=== PATIENT | female | born 1990 | race Caucasian/White ===

== ENCOUNTER → 2018-01-07 | Outpatient (CLI) | payer OTHER ==
[~2018-01-07] MED LIST: CHOL10005 PO; CIP500 PO; DIC10 PO; ESOM20CA31 PO; GLU500 PO; HYOS0.152 PO; KET10 PO; METR70GE14 VG; NORG1TAB76 PO; PREN-127 PO
== END ==
LOC: LAB 09:21
PROVIDERS: ATTEND Obstetrics & Gynecology
DX: E22.1 Hyperprolactinemia (principal)
CPT/HCPCS: 36415; 84146

== ENCOUNTER → 2018-01-12 | Outpatient (CLI) | payer OTHER ==
[~2018-01-12] MED LIST changes: +GADOBENATE 529MG/1ML 15ML VIAL IVP ONE; +NS 0.9% 25 ML BAG 50 ML ONE
--- NOTE | 2018-01-12 11:24 | RADIOLOGY IMAGING REPORT ---
FACILITY: [facility] - [place] PATIENT NAME: Tariq Gil : 1990 MR: [id number] V: [id number] EXAM DATE: ORDERING PHYSICIAN: AMIRA MORAN TECHNOLOGIST: Location: [facility] Patient: Tariq Gil : 1990 Visit/Account:[id number] Date of Sevice: 01/12/2018 SELLA IAC W W/O CONTRAST Comparisons: Brain MRI with and without contrast dated May 16, 2017 Additional pertinent history: Disorder of the pituitary gland TECHNIQUE: Multiplanar, multisequence brain MRI was performed with and without gadolinium contrast. Dedicated thin section imaging was performed through the pituitary fossa both in the coronal and sagi ttal plane. CONTRAST: 15 ml of MultiHance. FINDINGS: Sagittal midline structures and craniocervical junction: Negative. Midline shift: None. Ventricles: Negative. Brain parenchyma: Diffusion weighted imaging: Negative. Gradient sequence: Negative. T2 weighted FLAIR images: Negative. Dedicated imaging through the pituitary fossa: Pituitary stalk/optic chiasm: Negative Pituitary gland/pituitary fossa: Continued 1 cm region of hypoenhancement with mild increas ed T1 signal on the precontrast images within the midportion and left aspect of the pituitary fossa a gain most consistent with an underlying macroadenoma with previous hemorrhage. This finding is stable from previous exam. Cavernous sinuses: Negative Skull base flow voids: Negative Extra-axial spaces: Negative. Dural venous sinuses and major arterial flow voids: Negative. Intracranial enhancement: Negative.. Mastoid air cells and paranasal sinuses: Negative. Surrounding soft tissues and orbits: Negative. Impression: 1. 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 2. No new findings from previous exam. Report Dictated By: Han Mai MD at 01/12/2018 11:15 AM Report E-Signed By: Han Mai MD at 01/12/2018 11:20 AM WSN:[id number]
== END ==
LOC: MRI 01-08 09:58
PROVIDERS: ATTEND Obstetrics & Gynecology
DX: E23.7 Disorder of pituitary gland, unspecified (principal)
CPT/HCPCS: 70553; A9577

== ENCOUNTER → 2018-05-28 | Outpatient (CLI) | payer OTHER ==
[~2018-05-28] MED LIST changes: +FLU60SYR36 IM; -GADOBENATE 529MG/1ML 15ML VIAL IVP ONE; -NS 0.9% 25 ML BAG 50 ML ONE
== END ==
LOC: LAB 09:54
PROVIDERS: ATTEND Obstetrics & Gynecology
DX: D35.2 Benign neoplasm of pituitary gland (principal)
CPT/HCPCS: 36415; 84146

== ENCOUNTER → 2018-11-27 | Outpatient (CLI) | payer OTHER ==
[2018-11-27 08:42] LABS: PLATELET COUNT, AUTOMATED 328 K/uL (150-450)
== END ==
LOC: LAB 08:06
PROVIDERS: ATTEND Obstetrics & Gynecology Gynecology
DX: Z01.83 Encounter for blood typing (principal); Z13.0 Encounter for screening for diseases of the blood and blood-forming organs and certain disorders involving the immune mechanism; Z11.3 Encounter for screening for infections with a predominantly sexual mode of transmission; Z11.59 Encounter for screening for other viral diseases; Z11.8 Encounter for screening for other infectious and parasitic diseases; Z13.29 Encounter for screening for other suspected endocrine disorder; D35.2 Benign neoplasm of pituitary gland
CPT/HCPCS: 36415; 82533; 83001; 83002; 84146; 84305; 84439; 84443; 84481; 85025; 86592; 86703; 86762; 86787; 86803; 86850; 86900; 86901; 87340

== ENCOUNTER → 2018-12-09 | Outpatient (CLI) | payer OTHER | LOC: LAB 07:43 | PROVIDERS: ATTEND Internal Medicine Endocrinology, Diabetes & Metabolism | DX: R82.998 Other abnormal findings in urine (principal); D35.2 Benign neoplasm of pituitary gland | CPT/HCPCS: 36415; 82533 ==

== ENCOUNTER 2019-03-09 00:18 | Emergency (ER) | payer OTHER ==
--- NOTE | 2019-03-09 00:20 | ER Report ---
History and Physical Time Seen By MD: 00:15 HPI/ROS CHIEF COMPLAINT: Abdominal pain HISTORY OF PRESENT ILLNESS: 28-year-old female presents with severe lower abdominal pain and a sensation of having to push to have a bowel movement. She does have a history of constipation and takes MiraLAX on occasion. Patient denies dysuria. She states she is voiding fine. Patient notes severe nausea but no vomiting. Patient's pain became quite severe 10 out of 10. It doubled her over. She's presents for evaluation. Patient's Last menstrual period was 3 weeks ago. Patient took a home test this morning, which she thought was positive. REVIEW OF SYSTEMS: Respiratory: No cough, no dyspnea. Cardiovascular: No chest pain, no palpitations. Gastrointestinal: As above Musculoskeletal: No back pain. Allergies: Coded Allergies: No Known Drug Allergies (Verified , 03/09/19) Home Meds Active Scripts Tramadol Hcl (TRAMADOL HCL) 50 Mg Tablet, 1 TAB PO Q4-6H PRN for PAIN, #10 MG TAKE ONE TABLET BY MOUTH EVERY FOUR TO SIX HOURS NEEDED Prov:MEERA ARTEAGA DO 03/09/19 Ondansetron 4 Mg Odt (ONDANSETRON 4 MG ODT) 4 Mg Tab.rapdis, 4 MG PO Q6H PRN for NAUSEA/VOMITING, #10 TAB Prov:MEERA ARTEAGA DO 03/09/19 Reported Medications Cholecalciferol (Vitamin D3) (VITAMIN D3) 1,000 Unit Tablet, 1000 UNIT PO, TAB 01/06/18 Vits W-Ca,Fe,Fa(<1MG) ( VITAMINS) 1 Each Tablet, 1 EACH PO DAILY, TAB 01/06/18 Reviewed Nurses Notes: Yes Old Medical Records Reviewed: Yes Smoking Status: Never Smoker Constitutional Vital Sign - Last 24 Hours 03/09/19 03/09/19 03/09/19 03/09/19 00:18 00:20 00:22 00:30 Temp 97.7 Pulse ??? 77 Resp 18 B/P (MAP) 106/56 (73) 105/56 113/63 (80) Pulse Ox 93 O2 Delivery Room Air 03/09/19 03/09/19 03/09/19 03/09/19 00:33 00:48 01:00 01:03 Pulse ? 85 B/P (MAP) ???/??? (1665) Pulse Ox 94 03/09/19 03/09/19 03/09/19 03/09/19 01:18 01:29 01:48 01:53 Pulse 84 67 66 B/P (MAP) 116/58 (77) Pulse Ox 94 94 94 03/09/19 03/09/19 03/09/19 03/09/19 02:00 02:08 02:23 02:30 Pulse 73 71 B/P (MAP) 107/59 (75) 111/50 (70) Pulse Ox 95 92 03/09/19 03/09/19 03/09/19 03/09/19 02:38 02:53 03:00 03:08 Pulse 71 68 ??? B/P (MAP) 115/56 (75) Pulse Ox 95 93 03/09/19 03:23 Pulse ??? Intake and Output 03/08/19 03/08/19 03/09/19 15:04 23:04 07:04 Intake Total 1000 ml Balance 1000 ml Physical Exam General Appearance: The patient is alert, has no immediate need for airway protection and no current signs of toxicity. Vital signs stable, afebrile, pulse ox normal Eyes: Pupils equal and round no injection. Respiratory: Chest is non tender, lungs are clear to auscultation. Cardiac: regular rate and rhythm Gastrointestinal: Abdomen is soft and non tender, no masses, bowel sounds normal. No CVA tenderness Musculoskeletal: Neck: Neck is supple and non tender. Extremities have full range of motion and are non tender. Skin: No rashes or lesions. DIFFERENTIAL DIAGNOSIS: After history and physical exam differential diagnosis w as considered for abdominal pain including but not limited to appendicitis, cholecystitis, gastritis and urinary tract infection. Medical Decision Making Data Points Result Diagram: 03/09/19 0044 03/09/19 0044 Laboratory Hematology Test 03/09/19 00:44 White Blood Count 11.5 k/uL (4.5-11.0) H Red Blood Count 4.85 M/uL (4.17-5.56) Hemoglobin 14.8 g/dL (12.0-16.0) Hematocrit 43.2 % (34.0-47.0) Mean Corpuscular Volume 89.0 fL (80.0-96.0) Mean Corpuscular Hemoglobin 30.5 pg (26.0-33.0) Mean Corpuscular Hemoglobin Concent 34.3 g/dL (32.0-36.0) Red Cell Distribution Width 12.9 % (11.5-14.5) Platelet Count 329 K/uL (150-450) Mean Platelet Volume 8.3 fL (7.2-11.1) Neutrophils (%) (Auto) 49.2 % (39.4-72.5) Lymphocytes (%) (Auto) 41.6 % (17.6-49.6) Monocytes (%) (Auto) 7.9 % (4.1-12.4) Eosinophils (%) (Auto) 0.8 % (0.4-6.7) Basophils (%) (Auto) 0.5 % (0.3-1.4) Nucleated RBC Relative Count (auto) 0.1 /100WBC Neutrophils # (Auto) 5.6 K/uL (2.0-7.4) Lymphocytes # (Auto) 4.8 K/uL (1.3-3.6) H Monocytes # (Auto) 0.9 K/uL (0.3-1.0) Eosinophils # (Auto) 0.1 K/uL (0.0-0.5) Basophils # (Auto) 0.1 K/uL (0.0-0.1) Nucleated RBC Absolute Count (auto) 0.01 K/uL Chemistry Test 03/09/19 00:44 Sodium Level 138 mmol/L (137-145) Potassium Level 3.5 mmol/L (3.5-5.0) Chloride Level 106 mmol/L (98-107) Carbon Dioxide Level 24 mmol/L (22-31) Blood Urea Nitrogen 8 mg/dl (7-18) Creatinine 0.50 mg/dl (0.52-1.04) Glomerular Filtration Rate Calc > 60.0 Random Glucose 110 mg/dl (75-110) Calcium Level 8.8 mg/dl (8.4-10.2) Total Bilirubin 0.6 mg/dl (0.2-1.3) Aspartate Amino Transf (AST/SGOT) 27 U/L (0-35) Alanine Aminotransferase (ALT/SGPT) 26 U/L (0-56) Alkaline Phosphatase 86 U/L (0-126) Total Protein 7.3 g/dl (6.3-8.2) Albumin 4.2 g/dl (3.5-5.0) Amylase Level 100 U/L (0-110) Lipase 80 U/L (23-300) Human Chorionic Gonadotropin, Qual Negative (NEGATIVE) Urinalysis Test 03/09/19 00:25 Urine Color Yellow Urine Clarity Slightly-cloudy Urine pH 6.0 pH (4.8-9.5) Urine Specific [place] 1.011 Urine Protein Negative mg/dL (NEGATIVE) Urine Glucose (UA) Negative mg/dL (NEGATIVE) Urine Ketones Negative mg/dL (NEGATIVE) Urine Blood Negative (NEGATIVE) Urine Nitrite Negative (NEGATIVE) Urine Bilirubin Negative (NEGATIVE) Urine Urobilinogen Negative mg/dL (0.2-1.9) Urine Leukocyte Esterase Negative (NEGATIVE) Urine RBC 3 /HPF (0-2/HPF) Urine WBC 4 /HPF (0-5/HPF) Urine Squamous Epithelial Cells Many /LPF (</=FEW) Urine Transitional Epithelial Cells Few /LPF (NONE-FEW) Urine Amorphous Crystals Few /LPF Urine Bacteria Negative /HPF (NONE-FEW) Urine Hyaline Casts Few /LPF (NONE-FEW) Urine Mucus None /HPF (NONE-FEW) ED Course/Re-evaluation Clinical Indication for ER IV: Hydration, IV Access ED Course Patient was minute to an examination room. H&P was done. The differential diagnoses was considered. Patient with severe lower abdominal pain, possible positive test. Peripheral IV was established. Patient was given Zofran. IV fluid hydration was initiated. Patient's diagnostic studies returned with normal labs and a negative serum test. A KUB x-ray is ordered to evaluate her abdomen for the severe lower abdominal pain, suspicious for constipation. Diagnostic studies are negative. Patient's discharged home and advised clear liquid diet for 2 days, then advance to the Adrienne diet. She's given Zofran and tramadol for pain relief. She is advised ibuprofen 600 mg 3 times daily as an anti-inflammatory. She is advised to follow-up with primary care if unimproved in 3-5 days. Decision to Disposition Date: Mar 09, 2019 Decision to Disposition Time: 02:19 Depart Departure Latest Vital Signs Vital Signs Date Time Temp Pulse Resp B/P (MAP) Pulse Ox O2 Delivery O2 Flow Rate FiO2 03/09/19 03:23 ??? 03/09/19 03:00 115/56 (75) 03/09/19 02:53 93 03/09/19 00:22 97.7 18 Room Air Impression: Primary Impression: Abdominal pain Additional Impression: Nausea Condition: Improved Disposition: HOME OR SELF-CARE Referrals: XUAN URIOSTEGUI MD New Scripts Tramadol Hcl (TRAMADOL HCL) 50 Mg Tablet 1 TAB PO Q4-6H PRN for PAIN, #10 MG TAKE ONE TABLET BY MOUTH EVERY FOUR TO SIX HOURS NEEDED Prov: MEERA ARTEAGA DO 03/09/19 Ondansetron 4 Mg Odt (ONDANSETRON 4 MG ODT) 4 Mg Tab.rapdis 4 MG PO Q6H PRN for NAUSEA/VOMITING, #10 TAB Prov: MEERA ARTEAGA DO 03/09/19 Patient Instructions: Abdominal Pain (ED), Clear Liquid Diet (ED) Additional Instructions: Follow clear liquid diet for 48 hours, then advance to Adrienne diet, bananas, rice, applesauce and toast Take ibuprofen 200 mg 3 tablets 3 times a day You can also use Tylenol for additional pain relief Follow-up with primary care doctorFareed if unimproved in 3-5 days Problem Qualifiers Primary Impression: Abdominal pain Abdominal location: lower abdomen, unspecified Qualified Codes: R10.30 - Lower abdominal pain, unspecified MEERA ARTEAGA DO Mar 09, 2019 00:20
[2019-03-09] MEDS ORDERED: ONDANSETRON 4 MG/2 ML VIAL IVP ONE (00:40)
[2019-03-09] MEDS ORDERED: NS(*) 0.9% 1000 ML BAG 1,000 ML IV ONE (00:40)
[2019-03-09 01:11] LABS: PLATELET COUNT, AUTOMATED 329 K/uL (150-450)
[2019-03-09] MEDS ORDERED: KETOROLAC 30 MG/ML VIAL IVP ONE (01:20)
[2019-03-09] MEDS ORDERED: fentaNYL CITR 100 MCG/2 ML AMP IVP ONE (01:20)
--- NOTE | 2019-03-09 02:00 | RADIOLOGY IMAGING REPORT ---
FACILITY: [facility] - [place] PATIENT NAME: Tariq Gil : 1990 MR: [id number] V: [id number] EXAM DATE: ORDERING PHYSICIAN: MEERA ARTEAGA TECHNOLOGIST: [place] [facility] [place] Tariq Gil : 1990 Visit/Account:[id number] Date of Sevice: 03/09/2019 Abdomen: Indication: Lower abdominal pain. Technique: Supine views of the abdomen were obtained. Comparison: None available. Findings: The intestinal gas pattern is unremarkable. There is no evidence of obstruction. No suspici ous calcifications are identified. The skeletal and soft tissue structures appear unremarkable. IMPRESSION: No evidence of obstruction or other acute process. Report Dictated By: Lefty López MD at 03/09/2019 1:50 AM Report E-Signed By: Lefty López MD at 03/09/2019 1:53 AM WSN:[id number]
[2019-03-09] MEDS ORDERED: ONDA4TAB9 PO (02:25)
[2019-03-09] MEDS ORDERED: TRAM-420 PO (02:25)
[2019-03-09] MEDS ORDERED: ONDANSETRON 4 MG ODT TH SL ONE (02:30)
[2019-03-09] MEDS ORDERED: traMADol 50 MG TAB TH 2 TAB/BOTTLE PO ONE (02:30)
[2019-03-09 03:00] VITALS: BP 115/56
== END 2019-03-09 03:42 | disposition home or self-care (01) ==
LOC: ER 00:53
DX: R10.30 Lower abdominal pain, unspecified (principal); R11.0 Nausea
CPT/HCPCS: 74018; 81001; 82150; 83690; 84703; 85025; 96361; 96374; 96375; 99284; C9399; J1885; J2405; J3010; J7030; S0119; 82040; 82247; 82310; 82374; 82435; 82565; 82947; 84075; 84132; 84155; 84295; 84450; 84460; 84520